=== PATIENT | female | born 1935 | race Caucasian/White ===

== ENCOUNTER 2016-07-23 05:32 | Day surgery (SDC) | payer MEDICARE ==
--- NOTE | 2016-07-22 13:04 | PCM.ANEPRE ---
Anesthesia Pre-Op Review Reason for Review: COMORBIDITIES; S/P LT CAROTID STENT 06/2016-ANTICOAGULATION Anesthesia Recommendations: Proceed with Procedure Additional Comments 81 yo for deltoid muscle biopsy. Patients comorbidities include CAD, DM, COPD, CVD. Cardiac status seems stable after hx of triple bypass surgery in 2003. Last myocardial perfusion study in 04/2016 was normal. Patient has bilateral carotid artery dz, 40-50 percent occlusion of Rt ICA, 90% occlusion of left ICA which has now been stented in july. Patient remains on the blood thinner Brilinta per her neurologist. She had recent cardiac visit with Dr. Badillo last month and note suggest stable cardiac status. Proceed with eval. Chart Reviewed by: Fermin Ortiz MD Jul 22, 2016 13:04
[~2016-07-23] VITALS: Ht 157.5 cm; Wt 71.1 kg
[~2016-07-23 05:32] MED LIST: ASPI-973 PO; ATEN25TA PO; CHOL100045 PO; CINN500C14 PO; ESTR0.5T PO; FISH1CAP15 PO; HYG25 PO; IBAN150T8 PO; LOSA50TA37 PO; MAGN250T29 PO; MEDR5TAB4 PO; MULT-1105 PO; NTG3T TD; OMEP20CA11 PO; ROPI0.5T2 PO; ROSU40TA PO; TIOT4MIS5 IH; TUMERIC ROOT EXTRACT PO; [UNRECOGNIZED DRUG - CODE] PO; [UNRECOGNIZED DRUG - OTHER] PO
[2016-07-23] MEDS ORDERED: fentaNYL-PF 50 mCg/mL 2 mL Inj ONE (05:33)
[2016-07-23] MEDS: Lactated Ringer's 1,000 ML IV SCH ×2 (05:34→07:26)
[2016-07-23] MEDS ORDERED: Clindamycin Inj 900 MG in IV Premix 1 EACH IV SCH (06:00)
[2016-07-23 06:08] VITALS: BP 74/28; PULSE 54; RESP 16; O2SAT 97
[2016-07-23 06:11] VITALS: BP 84/30
[2016-07-23 06:16] VITALS: BP 103/38
--- NOTE | 2016-07-23 07:00 | PCM.HPANE ---
Patient Data Surgeon Admitting Provider: Attending Provider:Alexandro Arnold MD Primary Care Physician:Kathy Rai Other Provider: Reason for Visit Muscle Weakness Ht/WT & BMI Height (Feet): 5 Height (Inches): 2 Weight (Kilograms): 71.1 Body Mass Index 28.00 Allergies Coded Allergies: Cephalosporins (Verified Allergy, Severe, RASH, 07/19/16) Penicillins (Verified Allergy, Severe, Rash,HIVES, 07/19/16) chloramphenicol (Verified Allergy, Severe, RASH, 07/19/16) Macrolide Antibiotics (Verified Allergy, Unknown, UNKNOIWN, 07/19/16) atorvastatin (Verified Allergy, Unknown, 07/23/16) cefaclor (Verified Allergy, Unknown, 07/23/16) naproxen (Verified Allergy, Unknown, 12/27/13) oxycodone (Verified Allergy, Unknown, 09/13/14) simvastatin (Verified Allergy, Unknown, 09/13/14) codeine (Verified Adverse Reaction, Severe, N&V, 07/19/16) gabapentin (Verified Adverse Reaction, Severe, double vision, 07/19/16) lisinopril (Verified Adverse Reaction, Severe, HEADACHE, 07/19/16) risedronate sodium (Verified Adverse Reaction, Severe, GERD, 07/19/16) tramadol (Verified Adverse Reaction, Severe, racing heart rate,NAUSEA, ) Uncoded Allergies: ERYTHROMYCIN (Allergy, Severe, rash,HIVES, 07/19/16) OXYCODONE/ACETAMINOPHEN (Generic Allergy) (Adverse Reaction, Severe, N&V (ALSO PERCODAN), 07/19/16) SIMVASTATIN/ATORVASTATIN (Adverse Reaction, Severe, MYALGIAS, 07/19/16) Past Anesthesia History Anesthesia History: Positive for:: Anesthesia Reactions (numbing medication at dentist made heart race), Denies:: Abnormal Airway, Difficult Intubation, Fam Anesthesia Reaction, Fam Malignant Hypertherm, Malignant Hyperthermia Diabetes History Hx Diabetes?: Yes (DIET CONTROLLED) Type of Diabetes: Type II Glycemic Control: Diet Controlled Current Bedside Blood Glucose: 126 MRSA MRSA: No Medications Blood Thinner: Aspirin Hypertension Medication: Yes (CHLORTHALIDONE,LOSARTAN) Home Meds Incl Beta Ggae: Yes Date Beta Gage Taken: Jul 23, 2016 Time Beta Gage Taken: 0445 Reported Medications Cholecalciferol (Vitamin D3) (Vitamin D)1,000 Unit Capsule2,000 Unit PO DAILY # 1 BOTTLE Ref 0 07/19/16 [Tumeric Root Extract] No Conflict Xfite197 Mg PO DAILY 07/19/16 Tiotropium Macy (Spiriva Respimat)1.25 Mcg/Actuation Mist.inhal4 Gm IH DAILY 07/19/16 Rosuvastatin Calcium (Crestor)40 Mg Gcnajl43 Mg PO DAILY 30 Days Ref 0 07/19/16 Ropinirole 0.5 Mg Tablet0.5 Mg PO TID Ref 0 07/19/16 Omeprazole 20 Mg Capsule.dr20 Mg PO DAILY Ref 0 07/19/16 Nitroglycerin (Nitro-Dur)1 Ea Patch1 Ea TD DAILY 0.2MG/H 07/19/16 Medroxyprogesterone 5 Mg Tablet5 Mg PO DAILY Ref 0 07/19/16 Magnesium Oxide (Magnesium)250 Mg Idzany713 Mg PO DAILY 07/19/16 Losartan Potassium 50 Mg Ckstwo69 Mg PO DAILY 07/19/16 Ibandronate Sodium 150 Mg Tjsuzz678 Mg PO MONTHLY 07/19/16 Fish Oil/Dha/Epa (Fish Oil 1,200 mg Fish Oil)1 Each Capsule1 Each PO BID 07/19/16 Estradiol 0.5 Mg Tablet0.5 Mg PO DAILY 07/19/16 Cinnamon Bark (Cinnamon)500 Mg Capsule1,000 Mg PO DAILY 07/19/16 Chlorthalidone 25 Mg Grszfo49 Mg PO DAILY #30 TABLET 07/19/16 Multivitamin/Iron/Folic Acid (Centrum Women Tablet)18 Mg Iron-400 Mcg Tablet1 Each PO DAILY 07/19/16 Calcium Carbonate/Vitamin D3 (Caltrate 600 + D Soft Chew Tab)1 Each Tab.chew1 Each PO BID 07/19/16 [Brilenta] No Conflict Check50 Mg PO BID 07/19/16 Atenolol 25 Mg Sfeewa85 Mg PO BID #30 TABLET Ref 0 07/19/16 Aspirin 81 Mg Dulpfg29 Mg PO DAILY Ref 0 07/19/16 Discontinued Reported Medications Albuterol-Expunged Drug, Do Not Renew! 18 Gm Hfa.aer.ad1 Puff IH Q4-6H 05/19/13 Estradiol-Expunged Drug, Do Not Renew! (Estrace-Expunged Drug, Do Not Renew!) 0.5 Mg Tablet0.5 Mg PO DAILY 05/19/13 Losartan-Expunged Drug, Do Not Renew! 100 Mg Phpmfo23 Mg PO BID #30 TAB Ref 0 05/19/13 Folic Acid/Mv,Fe,Other Min (Centrum Complete Multivit Tab)1 Each Tablet1 Each PO DAILY 04/09/11 IBUPROFEN-Expunged Drug, Do Not Renew! 600 Mg Rraarh843 Mg PO Q6 PRN 04/04/11 Aspirin (Miniprin)81 Mg Tablet.dr81 Mg PO DAILY 04/04/11 Cholecalciferol-Expunged Drug, Do Not Renew! (Vitamin D-Expunged Drug, Do Not Renew!)400 Unit Tab.chew4,000 Iu PO DAILY 04/04/11 Fish Oil-Expunged Drug, Do Not Renew! Vgx367-0,200 Po Daily 04/04/11 MedroxyPROGESTERone-Expunged Drug, Do Not Johnny (Provera-Expunged Drug, Do Not Renew!)5 Mg Tablet5 Mg PO DAILY 04/04/11 Pantoprazole-Expunged Drug, Do Not Renew! (Protonix-Expunged Drug, Do Not Renew! )40 Mg Tablet.dr40 Mg PO DAILY 04/04/11 Atenolol-Expunged Drug, Do Not Renew! 25 Mg Oeiogi79 Mg PO BID 04/04/11 Rosuvastatin-Expunged Drug, Do Not Renew! (Crestor-Expunged Drug, Do Not Renew!) 40 Mg Bcryul14 Mg PO DAILY 04/04/11 Nitroglycerin-Expunged Drug, Do Not Renew! (Nitroglycerin SL-Expunged Drug, Do Not Renew!)0.4 Mg Tab.subl0.4 Mg SL PRN 04/04/11 Tiotropium Br-Expunged Drug, Do Not Renew! (Spiriva-Expunged Drug, Do Not Renew! )18 Mcg/Puff Pack18 Mcg IH DAILY 04/04/11 History History of ENT Problems?: Yes HEENT History: Positive for:: Cataracts (S/P B/L EXTRACTION) Hearing Problem Sinus Problem (SEASONAL ALLERGIES HX NASAL FX S/P SINUS SURGERY) Denies:: Abnormal Airway Difficult Intubation Dysphagia Other HEENT Pertinent History: S/P TONSILLECTOMY Hx of Heart Problems?: Yes Cardiovascular History: Positive for:: Cardiac Surgery (S/P HEART CATH 2003,CABG 3 VESSEL 07/2003) Chest Pain (ANGINA) Congestive Heart Failure Coronary Artery Disease Heart Murmur (GR I/VISYST @RUSB ECHO 11/2015 EF 70-75%) Hypertension (HYPERLIPIDEMIA) Peripheral Vascular (S/P LT CAROTID STENT 06/2016 DR. Kiana [facility]) Thrombophlebitis (DVT 11/2013) Valvular Heart Disease (MILD TR, MILD AORTIC SCLEROSIS) Denies:: AICD Atrial Fibrillation Edema Irregular Heartbeat Pacemaker Other Cardiac History: C/OF PAD W/CLAUDICATION,LEG PAIN S/P B/L LE VEIN STRIPPING Hx of Respiratory Problem?: Yes Respiratory History: Positive for:: COPD (PULM. NOTE/PFT -06/2013) Chest Surgery Dyspnea (MARR) Pneumonia (& BRONCHITIS) Use of C-PAP Machine (YASMANY+ W/ CPAP SLEEP STUDY 11/2009) Denies:: Asthma Cough Emphysema Hemoptysis Tuberculosis Hx Neurologic Problems?: Yes Neurological History: Positive for:: Headaches ("ocular migraines") Denies:: CVA Dementia Other Neurological Pertinent: C/OF FATIGUE Hx of GI Problems?: Yes Gastrointestinal History: Positive for:: Cirrhosis Gall Bladder Disease (S/P TONA) Gastroesphageal Reflux (HX H. PYLORI-TREATED) Heartburn Denies:: Diverticulitis Gastrointestinal Bleeding Hepatitis Hiatal Hernia Rectal Bleeding (HX HEMORRHOIDS, COLON POLYPS) Hx of Problems?: Yes Genitourinary History: Denies:: HX of Hemodialysis (HX CHRONIC RENAL INSUFFICIENCY) Female Hx: Denies:: Currently Endometriosis Pelvic Inflammatory Problems with Breasts? Skin History: Positive for:: History Skin Disorders? (PSORIASIS) Denies:: Pressure Ulcers Hx Musculoskeletal Problems?: Yes Musculoskeletal History: Positive for:: Back Injury (C/OF BACK PAIN) Musculoskeletal Trauma (C/OF SHOULDER PAIN HX FX WRIST,RIB LT,RT FOOT) Osteoarthritis (OSTEOPOROSIS) Denies:: Joint Replacement Hx of Psycho/Social Problems?: Yes Psycho Social History: Positive for:: Anxiety Denies:: Bipolar Disorder Hx Depression Suicide Attempt Hx Surgeries?: Yes (HEART CATH,CABG,LT CAROTID STENT,TONA,CATARACTS,B/L VEIN STRIPPING,TONSILS) Hx Any Other Health Problems?: Yes Other History: Positive for:: Hospitalization (surgery, childbirth) Denies:: Cancer Endocrine Disease Thyroid Disease History Blood Transfusions: Denies:: Blood Transfusions Hx Diabetes: Yes (DIET CONTROLLED)Bedside Blood Glucose: 126 Hx Alcohol Use: NoHx Substance Use: No Smoking Status: Former Smoker Have You Smoked inLast 12 mo: No Stop/Bang S-Snoring: Do You Snore Loudly: Yes T-Tired: feel tired, fatigued: Yes O-Obsered: Observed not breath: Yes P-Blood Pressure: treated: Yes B- Body Mass Index > 35 kg/m2: No A- Age over 50: Yes N- Neck Large Circumference: No G- Gender Male: No [place]AS[place] Total Score: 5 Risk Assessment Category Category 1A: Patient has history of documented sleep apnea, and HAS NOT received any narcotic, sedative or anesthesia administration during this stay. Category 1B: Patient has history of documented sleep apnea, and HAS received any narcotic , sedative or anesthesia administration during this stay Category 2: Patient has SUSPECTED Obstructive Sleep Apnea, and HAS received any narcotic , sedative or anesthesia administration during this stay. Category 3: Patient has SUSPECTED Obstructive Sleep Apnea and HAS NOT received narcotic, sedative or anesthesia administration during this stay. Category 4: Outpatient in Procedural Areas with known sleep apnea or who screen positive for High Risk via the STOP/BANG questionnaire. Exam Exam Vital Signs Vital Signs Date Time Temp Pulse Resp B/P Pulse Ox O2 Delivery O2 Flow Rate FiO2 07/23/16 06:17 CPAP/BIPAP 07/23/16 06:16 103/38 07/23/16 06:11 84/30 07/23/16 06:08 35.7 54 16 74/28 97 Room Air General Appearance: Alert HEENT/AIRWAY: MP 3 Lungs: Clear to Auscultation Heart: Exam Unremarkable Meds/Labs/Diagnostics Admission Meds Current Medications Lactated Ringer's (Lr) 1,000 ml @ 120 mls/hr Q8H20M IV Last administered on t 05:34; Start 07/23/16 at 05:00; Stop 07/23/16 at 13:19 Bedside Blood Glucose: 126 Plan Impression Patient chart reviewed, patient interviewed and anesthestic plan with risks, benefits, and alternatives discussed, and informed consent obtained. NPO Status: 2200 07/22/16 ASA Physical Status: ASA3 Severe Disease Anesthetic Support Modalities: Hemodynamic Monitoring Anesthetic Plan: MAC Bene/Risks/Altern/Consents: Yes HP Complete Prior to Induction: Yes Bob Downey MD Jul 23, 2016 07:00
[2016-07-23] MEDS ORDERED: Lactated Ringer's 500 ML IV PRN (07:17)
[2016-07-23] MEDS ORDERED: Lactated Ringer's 1,000 ML IV SCH (07:17)
[2016-07-23] MEDS ORDERED: MetoCLOpramide 5 mg/mL 2 mL Inj IVPUSH PRN (07:20)
[2016-07-23] MEDS ORDERED: Phenylephrine 10,000 mCg/mL Inj IVPUSH PRN (07:20)
[2016-07-23] MEDS ORDERED: Ondansetron 2 mg/mL 2 mL Inj IVPUSH PRN (07:20)
[2016-07-23] MEDS ORDERED: Dexamethasone 4 mg/mL Inj IVPUSH PRN (07:20)
[2016-07-23] MEDS ORDERED: EPHEDrine Sulfate 50 mg/mL Inj IVPUSH PRN (07:20)
[2016-07-23] MEDS ORDERED: HYDROmorphone 1 mg/mL Inj IVPUSH PRN (07:20)
[2016-07-23] MEDS ORDERED: fentaNYL-PF 50 mCg/mL 2 mL Inj IVPUSH PRN (07:20)
[2016-07-23] MEDS ORDERED: Bupivacaine-MPF 0.5% 30 mL Inj INFILTRATE ONE (07:44)
--- NOTE | 2016-07-23 08:03 | PCM.DISURG ---
Surgical Discharge Instruction Date of Service Jul 23, 2016 Dates of Hospitalization Date of Hospital Admission Providers Admitting Physician: Primary Care Physician: Kathy Rai Attending Physician: Alexandro Arnold MD Discharge Diagnosis Discharge Diagnosis Muscle weakness Diet Discharge Diet: No restrictions Activity Discharge Activity-General: No restrictions, Activity as pain allows Dressing and Incisional Care Dressing Care: Allow Steri Stripes to fall off, Remove outer dressing after 24 hrs Hygiene: May shower after (24 hours) Follow Up Plan Follow Up Plan In the general surgery [place] postoperative clinic in 2-3 weeks for a wound check Call your provider for: Fever (over 101.5), Discharge @ incision, pus discharge Alexandro Arnold MD Jul 23, 2016 08:03
[2016-07-23] MEDS ORDERED: HYDROcodone-APAP 5-325 mg Tablet PO PRN (08:05)
--- NOTE | 2016-07-23 08:09 | PCM.SURGOP ---
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 This has been associated with some muscle cramping and spasms. Nerve conduction studies showed increased nerve amplitude in the left leg. She had laboratory studies which were not suggestive of an autoimmune disorder. After discussion of risks and benefits, she agreed to proceed with left rectus femoris muscle biopsy. Findings: The muscle looked grossly normal. Procedure Details Procedural sedation was achieved. She was placed in the supine position, and was prepped and draped in wide sterile fashion. A procedural pause was performed according to the SCOAP checklist, and all were found to be in agreement. A 5 cm longitudinal incision was made over the left anterior thigh. Dissection was carried down through the subcutaneous tissue with electrocautery until the fascia was incised longitudinally. Using sharp dissection, the left rectus femoris muscle was dissected free, dissecting out a bundle of muscle approximately 5 cm in length and 1 cm in diameter, according to the [facility] protocol. Ex vivo, the muscle was secured to a tongue blade and wrapped in saline moistened gauze. It measured 4.5 cm in length. It was sent via damage appraiser to the [facility] for pathologic analysis. Hemostasis was adequate. The fascia was closed with an interrupted 3-0 Vicryl suture. The skin incision was closed with a running 4-0 Monocryl subcuticular stitch. Steri-Strips and sterile dressings were applied. At the end of the case all needle and sponge counts were correct 2. The patient was awakened from anesthesia without difficulty, and taken to the recovery room in satisfactory condition, having tolerated the procedure well. Complications There were no periprocedural complications identified. Surgical Specimen Removed: Yes Specimen sent to Pathology: Yes Surgical Specimen description: Left rectus femoris muscle Anesthetic Plan: MAC Grafts, Implants: None Output, Estimated Blood Loss: 10 Blood Administration during herrera: No Drains: None Catheters: None copies to: Kathy Rai; Trip Washburn MD, Joshua D MD Jul 23, 2016 08:09
[2016-07-23 08:13] VITALS: BP 99/30; PULSE 53; RESP 16; O2SAT 96
[2016-07-23 08:54] VITALS: BP 92/53; PULSE 52; RESP 18; O2SAT 97
--- NOTE | 2016-07-23 08:59 | PCM.ANEP1 ---
Post Anesthesia Phase 1 PACU Phase 1 Assessment Date of Service: Jul 23, 2016 Vital Signs Vital Signs Date Time Temp Pulse Resp B/P Pulse Ox O2 Delivery O2 Flow Rate FiO2 07/23/16 08:54 52 18 92/53 97 Room Air 07/23/16 08:13 36.8 53 16 99/30 96 Room Air 07/23/16 06:17 CPAP/BIPAP 07/23/16 06:16 103/38 07/23/16 06:11 84/30 07/23/16 06:08 35.7 54 16 74/28 97 Room Air Anesthetic Administered: MAC Level of Alertness: Awake, talking ALMEIDA's with Equal Strength: Yes Pain: No Nausea or Vomiting: No Cardiovascular Function and Hy: Yes Oxygen Delivery: Room Air Lungs: Clear to Auscultation Dermatome Level: Full Sensation Complications: No Follow up Care: No Patient Instructions Provided: Yes EarlyBob MD Jul 23, 2016 08:59
== END 2016-07-23 23:59 | disposition home or self-care (01) ==
LOC: SAS 05:32
PROVIDERS: ATTEND Student in an Organized Health Care Education/Training Program
DX: G72.89 Other specified myopathies (principal); I25.10 Atherosclerotic heart disease of native coronary artery without angina pectoris; E11.22 Type 2 diabetes mellitus with diabetic chronic kidney disease; E78.5 Hyperlipidemia, unspecified; I13.10 Hypertensive heart and chronic kidney disease without heart failure, with stage 1 through stage 4 chronic kidney disease, or unspecified chronic kidney disease; J44.9 Chronic obstructive pulmonary disease, unspecified; I73.9 Peripheral vascular disease, unspecified; N18.2 Chronic kidney disease, stage 2 (mild); K21.9 Gastro-esophageal reflux disease without esophagitis; G47.33 Obstructive sleep apnea (adult) (pediatric); Z95.5 Presence of coronary angioplasty implant and graft; Z95.1 Presence of aortocoronary bypass graft; Z86.718 Personal history of other venous thrombosis and embolism; Z79.82 Long term (current) use of aspirin; Z79.890 Hormone replacement therapy; Z87.891 Personal history of nicotine dependence
CPT/HCPCS: 20205; J2405; J3010; J7120